=== PATIENT | female | born 1950 | race Caucasian/White ===

== ENCOUNTER 2017-07-29 21:30 | Emergency (ER) | payer OTHER ==
[~2017-07-29] VITALS: Ht 162.6 cm; Wt 77.1 kg
[2017-07-29 21:49] VITALS: Ht 162.6 cm; Wt 77.1 kg
[2017-07-30] VITALS: BP 145/75
== END 2017-07-29 23:55 | disposition home or self-care (01) ==
LOC: ED 21:30
DX: I83.892 Varicose veins of left lower extremity with other complications (principal); I10 Essential (primary) hypertension